=== PATIENT | male | born 1960 | race Caucasian/White ===

== ENCOUNTER 2024-02-02 19:47 | Emergency (ER) | payer SELFPAY ==
[~2024-02-02] VITALS: Ht 165.1 cm; Wt 134.7 kg
[2024-02-02 19:52] VITALS: BP_SYST 131; PULSE 73; RESP 19; TEMP 98; O2SAT 97
[2024-02-02 20:52] LABS: BASOPHILS # (AUTO) 0.1 K/uL (0.0-0.2); BASOPHILS % (AUTO) 0.6 % (0.0-2.0); EOSINOPHILS # (AUTO) 0.1 K/uL (0.0-0.4); EOSINOPHILS % (AUTO) 1.7 % (0.0-4.0); HEMATOCRIT 40.8 % (36-54); HEMOGLOBIN 14.3 g/dL (14.0-18.0); LYMPHOCYTES # (AUTO) 2.9 K/uL (1.0-5.5); LYMPHOCYTES % (AUTO) 36.2 % (20.5-51.5); MEAN CORPUSCULAR HEMOGLOBIN 31 pg (27-31); MEAN CORPUSCULAR HGB CONC 35 % (32-36); MEAN CORPUSCULAR VOLUME 89 fL (79.0-98.0); MONOCYTES # (AUTO) 0.6 K/uL (0.0-1.0); MONOCYTES % (AUTO) 8.1 % (1.7-9.3); NEUTROPHILS # (AUTO) 4.3 K/uL (1.8-7.7); NEUTROPHILS % (AUTO) 53.4 % (40.0-70.0); PLATELET COUNT (AUTO) 201 K/uL (130-430); RED CELL DISTRIBUTION WIDTH 13.5 % (9.0-15.0)
[2024-02-02] MEDS: KETOROLAC TROMETHAMINE 60 MG/2 ML VIAL IM ONE (21:07)
[2024-02-02] MEDS: HYDROcodone/ACETAMIN 5-325 MG TAB (NORCO/ VICODIN) PO ONE (21:08)
[2024-02-02 21:11] LABS: BILIRUBIN,URINE NEGATIVE (NEGATIVE); BLOOD, URINE NEGATIVE (NEGATIVE); CLARITY/URINE CLEAR (CLEAR); COLOR,URINE YELLOW (YELLOW); GLUCOSE,URINE NEGATIVE (NEGATIVE); KETONES,URINE NEGATIVE (NEGATIVE); LEUKOCYTE ESTERASE ,URINE NEGATIVE (NEGATIVE); NITRITE, URINE NEGATIVE (NEGATIVE); PH,URINE 5.5 (5.0-8.0); PROTEIN URINE NEGATIVE (NEGATIVE); UROBILINOGEN,URINE 0.2 (0.2-1.0)
[2024-02-02 21:15] LABS: ALANINE AMINOTRANSFERASE 26 U/L (12-78); ALBUMIN 3.9 g/dL (3.4-4.8); AMYLASE 29 U/L (0-100); ANION GAP 8 (5-15); ASPARTATE AMINOTRANSFERASE < 5 U/L (10-37); BILIRUBIN,DIRECT 0.1 mg/dL (0.0-0.3); CARBON DIOXIDE 27 mmol/L (23-29); CHLORIDE 105 mmol/L (98-107); GFR AFRICAN AMERICAN 86 mL/min (>90); GLUCOSE 142 mg/dL (74-106); LIPASE 48 U/L (16-77); POTASSIUM 3.8 mmol/L (3.5-5.1); SODIUM SERUM 140 mmol/L (136-145); TOTAL BILIRUBIN 0.3 mg/dL (0.0-1.0); TOTAL PROTEIN, SERUM 7.4 g/dL (6.4-8.3); UREA NITROGEN, BLOOD 20 mg/dL (8-21)
[2024-02-02 21:17] LABS: GFR NON AFRICAN-AMERICAN 71 mL/min (>90)
[2024-02-02] MEDS ORDERED: HYDR-3917 PO (21:59)
[2024-02-02] MEDS ORDERED: IBUP-1970 PO (21:59)
[2024-02-02] MEDS ORDERED: AUG875 PO ×2 (21:59→22:04)
[2024-02-02] MEDS: AMOXICILLIN/POTASSIUM CLAV 875 MG TABLET PO ONE (22:10)
[2024-02-02 22:17] VITALS: BP_SYST 131; PULSE 73; RESP 19; TEMP 98; O2SAT 97
== END 2024-02-02 22:17 | disposition home or self-care (01) ==
LOC: SED 19:47
DX: K40.90 Unilateral inguinal hernia, without obstruction or gangrene, not specified as recurrent (principal); K57.92 Diverticulitis of intestine, part unspecified, without perforation or abscess without bleeding; Z79.899 Other long term (current) drug therapy; Z79.2 Long term (current) use of antibiotics
CPT/HCPCS: 99285; 74176; 80076; 80048; 81001; 82150; 83690; 85025; 36415; 96372; J1885; 81003